=== PATIENT | male | born 1975 ===

== ENCOUNTER 2021-06-11 07:01 | Inpatient (IN) | payer OTHER ==
[2021-06-11] MEDS ORDERED: SODIUM CHLORIDE 0.9% 1,000 ML IV ONE ×2 (07:04→09:03)
[2021-06-11 07:44] LABS: Basophils # (A) 0.1 k/uL (0-0.2); Basophils % (A) 1 %; Eosinophils # (A) 0.1 k/uL (0-0.7); Eosinophils % (A) 1 %; HCT 45.6 % (39.0-53.0); HGB 15.2 gm/dL (13.0-17.5); Lymphocytes # (A) 1.2 k/uL (1.0-4.8); Lymphocytes % (A) 23 %; MCH 31.6 pg (25.0-35.0); MCHC 33.3 g/dL (31.0-37.0); MCV 95.1 fL (80.0-100.0); Mean Platelet Volume 7.1; Monocytes # (A) 0.2 k/uL (0-1.0); Monocytes % (A) 4 %; Neutrophils # (A) 3.5 k/uL (1.3-7.7); Neutrophils % (A) 68 %; Platelet Count 247 k/uL (150-450); RDW 14.2 % (11.5-15.5); WBC 5.1 k/uL (3.8-10.6)
[2021-06-11 07:50] LABS: ALT 39 U/L (4-49); AST 76 U/L (17-59); African American GFR (CKD) >90 (>60 ml/min/1.73 sqM); Albumin 4.8 g/dL (3.5-5.0); Alkaline Phosphatase 86 U/L (38-126); Anion Gap 16 mmol/L; Blood Urea Nitrogen 5 mg/dL (9-20); Carbon Dioxide 19 mmol/L (22-30); Chloride 110 mmol/L (98-107); Glucose 131 mg/dL (74-99); Non-African American GFR(CKD) >90 (>60 ml/min/1.73 sqM); Potassium 4.2 mmol/L (3.5-5.1); Sodium 145 mmol/L (137-145); Total Bilirubin 0.4 mg/dL (0.2-1.3); Total Protein 8.5 g/dL (6.3-8.2)
--- NOTE | 2021-06-11 07:57 | ED ---
General Adult HPI - General Chief complaint: Altered Mental Status Stated complaint: Seizure Time Seen by Provider: 06/11/21 07:01 Source: patient, EMS, RN notes reviewed, old records reviewed Mode of arrival: EMS Limitations: language barrier - History of Present Illness Initial comments: This is a 46-year-old male who presents to the emergency department with altered mental status. Family found him acting bizarre and thought he might be having a seizure. EMS indicated continued bizarrely when she refused a seizure so they gave him 5 of Versed he settled down a little was able to answer some questions but he still was doing a little thrashing when he came into the emergency department. Patient told me he was drinking but did no drugs. Patient denies any trauma. Patient denies any pain. Patient denies any medical problems. Patient states he is trying to stop drinking but he told me he did do a lot of drinking recently. Patient denies any recent fever chills or cough per patient denies abdominal pain. - Related Data Allergies Allergy/AdvReac Type Severity Reaction Status Date / Time Penicillins Allergy Anaphylaxis Verified 06/11/21 07:55 escitalopram [From Lexapro] AdvReac Arm, Leg Verified 06/11/21 07:55 and Head jerking Review of Systems ROS Statement: Those systems with pertinent positive or pertinent negative responses have been documented in the HPI. ROS Other: All systems not noted in ROS Statement are negative. Past Medical History Past Medical History: Unable to Obtain History of Any Multi-Drug Resistant Organisms: Unobtainable Past Surgical History: Unable to Obtain Smoking Status: Never smoker Past Alcohol Use History: Abuse, Heavy Past Drug Use History: Unable to Obtain General Exam - General Exam Comments Initial Comments: GENERAL: Patient is well-developed and well-nourished. Patient is nontoxic and well- hydrated and is in mild distress. Patient is thrashing but able to correct full of what he really concentrates and is able to answer questions. ENT: Neck is soft and supple. No significant lymphadenopathy is noted. Oropharynx is clear. Moist mucous membranes. Neck has full range of motion without eliciting any pain. EYES: The sclera were anicteric and conjunctiva were pink and moist. Extraocular movements were intact and pupils were equal round and reactive to light. Eyelids were unremarkable. PULMONARY: Unlabored respirations. Good breath sounds bilaterally. No audible rales rhonchi or wheezing was noted. CARDIOVASCULAR: There is a regular rate and rhythm without any murmurs gallops or rubs. ABDOMEN: Soft and nontender with normal bowel sounds. SKIN: Skin is clear with no lesions or rashes and otherwise unremarkable. NEUROLOGIC: Patient is alert and oriented x3. Cranial nerves II through XII are grossly intact. Motor and sensory are also intact. Normal speech, volume and content. Symmetrical smile. MUSCULOSKELETAL: Normal extremities with adequate strength and full range of motion. LYMPHATICS: No significant lymphadenopathy is noted PSYCHIATRIC: Normal psychiatric evaluation. Limitations: language barrier Course Vital Signs 06/11/21 06/11/21 07:18 07:26 Temperature 97.9 F Pulse Rate 124 H 125 H Respiratory 20 22 Rate Blood Pressure 180/116 175/109 O2 Sat by Pulse 91 L 96 Oximetry Medical Decision Making - Medical Decision Making EKG shows sinus tachycardia at 101 bpm TN interval is 164 QRS is 84 QT interval 316 QTC C is 448. Patient's EKG shows no ST segment elevation or depression. I spoke with because he agreed to admit the patient admitted the patient wrote admitting orders. - Lab Data Result diagrams: 06/11/21 07:11 06/11/21 07:11 Lab Results 06/11/21 06/11/21 06/11/21 Range/Units 07:11 07:11 07:11 WBC 5.1 (3.8-10.6) k/uL RBC 4.80 (4.30-5.90) m/uL Hgb 15.2 (13.0-17.5) gm/dL Hct 45.6 (39.0-53.0) % MCV 95.1 (80.0-100.0) fL MCH 31.6 (25.0-35.0) pg MCHC 33.3 (31.0-37.0) g/dL RDW 14.2 (11.5-15.5) % Plt Count 247 (150-450) k/uL MPV 7.1 Neutrophils % 68 % Lymphocytes % 23 % Monocytes % 4 % Eosinophils % 1 % Basophils % 1 % Neutrophils # 3.5 (1.3-7.7) k/uL Lymphocytes # 1.2 (1.0-4.8) k/uL Monocytes # 0.2 (0-1.0) k/uL Eosinophils # 0.1 (0-0.7) k/uL Basophils # 0.1 (0-0.2) k/uL Sodium 145 (137-145) mmol/L Potassium 4.2 (3.5-5.1) mmol/L Chloride 110 H (98-107) mmol/L Carbon Dioxide 19 L (22-30) mmol/L Anion Gap 16 mmol/L BUN 5 L (9-20) mg/dL Creatinine 0.79 (0.66-1.25) mg/dL Est GFR (CKD-EPI)AfAm >90 (>60 ml/min/1.73 sqM) Est GFR (CKD-EPI)NonAf >90 (>60 ml/min/1.73 sqM) Glucose 131 H (74-99) mg/dL Calcium 9.0 (8.4-10.2) mg/dL Total Bilirubin 0.4 (0.2-1.3) mg/dL AST 76 H (17-59) U/L ALT 39 (4-49) U/L Alkaline Phosphatase 86 (38-126) U/L Ammonia <9 (<30) umol/L Troponin I (0.000-0.034) ng/mL Total Protein 8.5 H (6.3-8.2) g/dL Albumin 4.8 (3.5-5.0) g/dL Serum Alcohol 491 H* mg/dL 06/11/21 Range/Units 07:11 WBC (3.8-10.6) k/uL RBC (4.30-5.90) m/uL Hgb (13.0-17.5) gm/dL Hct (39.0-53.0) % MCV (80.0-100.0) fL MCH (25.0-35.0) pg MCHC (31.0-37.0) g/dL RDW (11.5-15.5) % Plt Count (150-450) k/uL MPV Neutrophils % % Lymphocytes % % Monocytes % % Eosinophils % % Basophils % % Neutrophils # (1.3-7.7) k/uL Lymphocytes # (1.0-4.8) k/uL Monocytes # (0-1.0) k/uL Eosinophils # (0-0.7) k/uL Basophils # (0-0.2) k/uL Sodium (137-145) mmol/L Potassium (3.5-5.1) mmol/L Chloride (98-107) mmol/L Carbon Dioxide (22-30) mmol/L Anion Gap mmol/L BUN (9-20) mg/dL Creatinine (0.66-1.25) mg/dL Est GFR (CKD-EPI)AfAm (>60 ml/min/1.73 sqM) Est GFR (CKD-EPI)NonAf (>60 ml/min/1.73 sqM) Glucose (74-99) mg/dL Calcium (8.4-10.2) mg/dL Total Bilirubin (0.2-1.3) mg/dL AST (17-59) U/L ALT (4-49) U/L Alkaline Phosphatase (38-126) U/L Ammonia (<30) umol/L Troponin I <0.012 (0.000-0.034) ng/mL Total Protein (6.3-8.2) g/dL Albumin (3.5-5.0) g/dL Serum Alcohol mg/dL Disposition Clinical Impression: Alcohol intoxication Disposition: ADMITTED IP TO THIS HOSP Referrals: None,Stated [Primary Care Provider] - 1-2 days Time of Disposition: 09:02
[2021-06-11] MEDS ORDERED: LORazepam 2 MG/ML INJ IV STA (07:59)
[2021-06-11 08:04] LABS: Alcohol 491 mg/dL
--- NOTE | 2021-06-11 08:12 | CT ---
EXAMINATION TYPE: CT brain wo con DATE OF EXAM: 06/11/2021 COMPARISON: 11/10/2020 HISTORY: Altered mental staus CT DLP: 1247.4 mGycm. Automated Exposure Control for Dose Reduction was Utilized. TECHNIQUE: CT scan of the head is performed without contrast. FINDINGS: There is no acute intracranial hemorrhage, mass effect, or midline shift identified. The ventricles and sulci are within normal limits in size. Mild changes of ethmoidal chronic sinusitis an d maxillary chronic sinusitis. There is soft tissue thickening underneath the right frontal subcutane ous tissues which could be related to scar. Small subcutaneous hematoma not excluded. IMPRESSION: 1. No acute intracranial hemorrhage, mass effect, or midline shift is seen. Correlate with MRI as cli nically warranted.
[2021-06-11] MEDS ORDERED: MULTIVITAMINS, THERA 1 EACH TAB PO ONE (08:30)
[2021-06-11] MEDS ORDERED: SODIUM CHLORIDE 0.9% 1,000 ML with THIAMINE 100 MG, FOLIC ACID 1 MG IV ONE ×3 (08:45)
[2021-06-11] MEDS ORDERED: THIAMINE 100 MG/ML 2 ML VIAL IM STA (09:02)
[2021-06-11] MEDS ORDERED: LORazepam 2 MG/ML INJ IV PRN (09:02)
--- NOTE | 2021-06-11 09:02 | XR ---
EXAMINATION TYPE: XR chest 2V DATE OF EXAM: 06/11/2021 COMPARISON: 11/10/2020 INDICATION: Difficulty breathing seizure TECHNIQUE: Frontal and lateral views of the chest are obtained. FINDINGS: The heart size is normal. The pulmonary vasculature is normal. The lungs are clear. IMPRESSION: 1. No acute pulmonary process.
[2021-06-11 09:14] LABS: Partial Thromboplastin Time 24.1 sec (22.0-30.0); Prothrombin Time 10.4 sec (9.0-12.0)
[2021-06-11] MEDS: amLODIPine 5 MG TAB PO SCH (09:38)
[2021-06-11] MEDS: cloNIDine HCL 0.1 MG TAB PO SCH ×2 (09:38→20:40)
[2021-06-11] MEDS: THIAMINE 100 MG TAB PO SCH (09:38)
[2021-06-11] MEDS: HALOPERIDOL LACTATE 5 MG/ML 1 ML VIAL IM PRN ×2 (09:57→23:12)
[2021-06-11 10:49] LABS: Appearance,Urine Clear (Clear); Bacteria,Urine Rare /hpf; Bilirubin,Urine Negative (Negative); Blood,Urine Small (Negative); Color,Urine Light Yellow; Glucose,Urine (UA) Negative (Negative); Hyaline Casts,Urine 1 /lpf (0-2); Ketones,Urine Negative (Negative); Leukocyte Esterase,Urine Negative (Negative); Mucus,Urine Rare /hpf; Nitrite,Urine Negative (Negative); Protein,Urine Trace (Negative); RBC,Urine <1 /hpf (0-5); Specific Gravity,Urine 1.006 (1.001-1.035); Urobilinogen,Urine <2.0 mg/dL (<2.0); WBC,Urine <1 /hpf (0-5)
[2021-06-11 11:13] LABS: Amphetamine Screen,Urine Not Detected (NotDetected); Barbiturate Screen,Urine Not Detected (NotDetected); Benzodiazepines Screen,Urine Detected (NotDetected); Cocaine Screen,Urine Not Detected (NotDetected); Methadone Screen, Urine Not Detected (NotDetected); Opiate Screen,Urine Not Detected (NotDetected); Oxycodone Screen, Urine Not Detected (NotDetected); Phencyclidine Screen,Urine Not Detected (NotDetected); Tricyclic Antidepressant,Urine Not Detected (NotDetected); Urn Cannabinoid Scrn Not Detected (NotDetected)
--- NOTE | 2021-06-11 13:05 | P.HPIM ---
History of Present Illness 46-year-old male came in with all call intoxication.. Patient the blood alcohol levels are above 400. Patient appears to like Ativan in spite of his will have blood alcohol level so high patient states he is having withdrawals and will need Ativan. Patient is tachycardic but this is secondary to rebound from not taking clonidine today morning. There are no other objective evidence of active withdrawals at this time although patient admits to drinking everyday patient is expected to have withdrawals later today or tomorrow. Patient is willing to quit alcohol. All the imaging is within normal limits including chest x-ray and brain CT. REVIEW OF SYSTEMS: CONSTITUTIONAL: No fever, no malaise, no fatigue. HEENT: No recent visual problems or hearing problems. Denied any sore throat. CARDIOVASCULAR: No chest pain, orthopnea, PND, no palpitations, no syncope. PULMONARY: No shortness of breath, no cough, no hemoptysis. GASTROINTESTINAL: No diarrhea, no nausea, no vomiting, no abdominal pain. NEUROLOGICAL: No headaches, no weakness, no numbness. HEMATOLOGICAL: Denies any bleeding or petechiae. GENITOURINARY: Denies any burning micturition, frequency, or urgency. MUSCULOSKELETAL/RHEUMATOLOGICAL: Denies any joint pain, swelling, or any muscle pain. ENDOCRINE: Denies any polyuria or polydipsia. The rest of the 14-point review of systems is negative. PHYSICAL EXAMINATION: GENERAL: The patient is alert and oriented x3, not in any acute distress. Well developed, well nourished. HEENT: Pupils are round and equally reacting to light. EOMI. No scleral icterus. No conjunctival pallor. Normocephalic, atraumatic. No pharyngeal erythema. No thyromegaly. CARDIOVASCULAR: S1 and S2 present. No murmurs, rubs, or gallops. Sinus tach cardia PULMONARY: Chest is clear to auscultation, no wheezing or crackles. ABDOMEN: Soft, nontender, nondistended, normoactive bowel sounds. No palpable organomegaly. MUSCULOSKELETAL: No joint swelling or deformity. EXTREMITIES: No cyanosis, clubbing, or pedal edema. NEUROLOGICAL: Gross neurological examination did not reveal any focal deficits. SKIN: No rashes. Assessment and plan -Alcohol abuse: Counseling was provided. Patient was started on IV fluids thi amine multivitamin supplementation -Alcohol withdrawal: Patient will be monitored, continue on Ativan CIWA protocol. Looking at the labs patient doesn't appear to be as alcoholic as he claims as his magnesium and MCV are within normal limits. If patient doesn't have any significant the withdrawals by objective assessment patient can be discharged tomorrow. -Nicotine use: Counseling was provided DVT prophylaxis: Lovenox Past Medical History Past Medical History: Unable to Obtain History of Any Multi-Drug Resistant Organisms: Unobtainable Past Surgical History: Unable to Obtain Smoking Status: Never smoker Past Alcohol Use History: Abuse, Heavy Past Drug Use History: Unable to Obtain Medications and Allergies Home Medications Medication Instructions Recorded Confirmed Type LORazepam [Ativan] 0.5 - 1 mg PO DAILY PRN 06/11/21 06/11/21 History Sertraline [Zoloft] 50 mg PO HS 06/11/21 06/11/21 History amLODIPine [Norvasc] 5 mg PO DAILY 06/11/21 06/11/21 History cloNIDine HCL [Catapres] 0.1 mg PO BID 06/11/21 06/11/21 History Allergies Allergy/AdvReac Type Severity Reaction Status Date / Time Penicillins Allergy Anaphylaxis Verified 06/11/21 07:55 escitalopram [From Lexapro] AdvReac Arm, Leg Verified 06/11/21 07:55 and Head jerking Physical Exam Vitals: Vital Signs Temp Pulse Resp BP Pulse Ox 06/11/21 12:36 98 18 140/95 97 06/11/21 11:09 112 H 20 138/100 96 06/11/21 09:14 118 H 22 170/105 97 06/11/21 07:26 125 H 22 175/109 96 06/11/21 07:18 97.9 F 124 H 20 180/116 91 L Intake and Output 06/10/21 06/11/21 06/11/21 22:59 06:59 14:59 Other: Weight 124.738 kg Results CBC & Chem 7: 06/11/21 07:11 06/11/21 07:11 Labs: Abnormal Lab Results - Last 24 Hours (Table) 06/11/21 06/11/21 Range/Units 07:11 10:08 Chloride 110 H (98-107) mmol/L Carbon Dioxide 19 L (22-30) mmol/L BUN 5 L (9-20) mg/dL Glucose 131 H (74-99) mg/dL AST 76 H (17-59) U/L Total Protein 8.5 H (6.3-8.2) g/dL Urine Protein Trace H (Negative) Urine Blood Small H (Negative) Urine Bacteria Rare H (None) /hpf Urine Mucus Rare H (None) /hpf U Benzodiazepines Scrn Detected H (NotDetected) Serum Alcohol 491 H* mg/dL
[2021-06-11] MEDS: LORazepam 2 MG/ML INJ IV PRN ×7 (13:13→23:29)
[2021-06-11] MEDS: SERTRALINE 50 MG TAB PO SCH (20:40)
[2021-06-12] MEDS: LORazepam 2 MG/ML INJ IV PRN ×9 (00:29→19:05)
[2021-06-12] MEDS: THIAMINE 100 MG TAB PO SCH ×2 (08:10→16:45)
[2021-06-12] MEDS: cloNIDine HCL 0.1 MG TAB PO SCH ×2 (08:10→21:22)
[2021-06-12] MEDS: amLODIPine 5 MG TAB PO SCH (08:10)
[2021-06-12] MEDS: SERTRALINE 50 MG TAB PO SCH (21:22)
[2021-06-13] MEDS: LORazepam 2 MG/ML INJ IV PRN ×7 (00:08→20:22)
[2021-06-13 07:10] LABS: Basophils % (A) 1 %; Eosinophils % (A) 1 %; HCT 39.6 % (39.0-53.0); HGB 13.2 gm/dL (13.0-17.5); Lymphocytes # (A) 0.6 k/uL (1.0-4.8); Lymphocytes % (A) 13 %; MCH 31.4 pg (25.0-35.0); MCHC 33.3 g/dL (31.0-37.0); MCV 94.2 fL (80.0-100.0); Mean Platelet Volume 7.3; Monocytes # (A) 0.3 k/uL (0-1.0); Monocytes % (A) 6 %; Neutrophils # (A) 3.7 k/uL (1.3-7.7); Neutrophils % (A) 79 %; Platelet Count 169 k/uL (150-450); RBC 4.21 m/uL (4.30-5.90); RDW 13.9 % (11.5-15.5); WBC 4.7 k/uL (3.8-10.6)
[2021-06-13] MEDS: amLODIPine 5 MG TAB PO SCH (07:55)
[2021-06-13] MEDS: cloNIDine HCL 0.1 MG TAB PO SCH ×2 (07:55→20:06)
[2021-06-13] MEDS: THIAMINE 100 MG TAB PO SCH ×2 (07:55→16:17)
[2021-06-13 10:46] LABS: African American GFR (CKD) 130.2 (60.0-200.0); Anion Gap 14.8 mmol/L (4.00-12.00); BUN/Creat Ratio 16.86 Ratio (12.00-20.00); Blood Urea Nitrogen 11.8 mg/dL (9.0-27.0); Carbon Dioxide 21.2 mmol/L (21.6-31.8); Non-African American GFR(CKD) 112.4 (60.0-200.0); Potassium 3.8 mmol/L (3.5-5.5)
[2021-06-13] MEDS: ALPRAZolam 0.25 MG TAB PO PRN (16:17)
[2021-06-13] MEDS: SERTRALINE 50 MG TAB PO SCH (20:06)
--- NOTE | 2021-06-13 22:43 | P.PN ---
Subjective Progress Note Date: 06/12/21 46-year-old male came in with alcohol intoxication.. Patient the blood alcohol levels are above 400. Patient was tachycardic but this is secondary to rebound from not taking clonidine. Patient is willing to quit alcohol. All the imaging is within normal limits including chest x-ray and brain CT. 06/12/2021 Patient is still requiring IV Ativan. Shaky when awake. No complaints of chest pain or shortness of breath. No complaints of nausea. No episodes of vomiting. Started on oral diet. Patient has been afebrile. Blood pressure is slightly elevated. Patient is being continued on alcohol withdrawal symptoms. Patient has been afebrile. No cough or sputum production. Current medications reviewed. Objective - Vital Signs Vital signs: Vital Signs Temp 98.3 F 06/12/21 12:50 Pulse 91 06/12/21 12:50 Resp 15 06/12/21 12:50 BP 154/98 06/12/21 12:50 Pulse Ox 96 06/12/21 12:50 Intake & Output 06/12/21 06/12/21 06/13/21 06:59 18:59 05:59 Intake Total 1840 480 Balance 1840 480 Intake: Oral 1840 480 Other: # Voids 2 4 - Exam PHYSICAL EXAMINATION: GENERAL: The patient is alert and oriented x3, not in any acute distress. Well developed, well nourished. drowzy HEENT: Pupils are round and equally reacting to light. EOMI. No scleral icterus. No conjunctival pallor. Normocephalic, atraumatic. No pharyngeal erythema. No thyromegaly. CARDIOVASCULAR: S1 and S2 present. No murmurs, rubs, or gallops. Sinus tach c ardia PULMONARY: Chest is clear to auscultation, no wheezing or crackles. ABDOMEN: Soft, nontender, nondistended, normoactive bowel sounds. No palpable organomegaly. MUSCULOSKELETAL: No joint swelling or deformity. EXTREMITIES: No cyanosis, clubbing, or pedal edema. NEUROLOGICAL: Gross neurological examination did not reveal any focal deficits. SKIN: No rashes. - Labs CBC & Chem 7: 06/13/21 06:37 06/13/21 06:37 Assessment and Plan Assessment: Assessment and plan -Acute alcohol intoxication. -Alcohol abuse: Counseling was provided. Patient was started on IV fluids thiamine multivitamin supplementation -Alcohol withdrawal: Patient will be monitored, continue on Ativan CIWA yuval col. -Nicotine use: Counseling was provided DVT prophylaxis: Lovenox
--- NOTE | 2021-06-13 22:44 | P.PN ---
Subjective Progress Note Date: 06/13/21 Principal diagnosis: Acute alcohol intoxication 46-year-old male came in with alcohol intoxication.. Patient the blood alcohol levels are above 400. Patient was tachycardic but this is secondary to rebound from not taking clonidine. Patient is willing to quit alcohol. All the imaging is within normal limits including chest x-ray and brain CT. 06/12/2021 Patient is still requiring IV Ativan. Shaky when awake. No complaints of chest pain or shortness of breath. No complaints of nausea. No episodes of vomiting. Started on oral diet. Patient has been afebrile. Blood pressure is slightly elevated. Patient is being continued on alcohol withdrawal symptoms. Patient has been afebrile. No cough or sputum production. 06/13/2021 Patient is lying in the bed awake alert Isabella x3 today. Did not require alcohol withdrawal protocol. Otherwise patient is very anxious. He was also notified by his friend that his daughter is in a car accident. Patient is otherwise denied any chest pain or shortness of breath. No nausea vomiting abdominal pain or diarrhea. Anticipate discharge in the next 24 hours with more clinical improvement. Laboratory showed WBC 4.7 hemoglobin 13.1 platelets 169 anion gap 14.8 and bicarb 21.2 Urinalysis is negative. UDS is positive for benzodiazepines. Current medications reviewed. Objective - Vital Signs Vital signs: Vital Signs Temp 98.2 F 06/13/21 13:00 Pulse 96 06/13/21 13:00 Resp 18 06/13/21 13:00 BP 142/84 06/13/21 13:00 Pulse Ox 97 06/13/21 13:00 Intake & Output 06/12/21 06/13/21 06/13/21 19:59 06:59 18:59 Intake Total 360 Output Total 800 Balance -440 Intake: Oral 360 Output: Urine 800 Other: # Voids 1 - Exam PHYSICAL EXAMINATION: GENERAL: The patient is alert and oriented x3, not in any acute distress. Well developed, well nourished. drowzy HEENT: Pupils are round and equally reacting to light. EOMI. No scleral icterus. No conjunctival pallor. Normocephalic, atraumatic. No pharyngeal erythema. No thyromegaly. CARDIOVASCULAR: S1 and S2 present. No murmurs, rubs, or gallops. Sinus tach cardia PULMONARY: Chest is clear to auscultation, no wheezing or crackles. ABDOMEN: Soft, nontender, nondistended, normoactive bowel sounds. No palpable organomegaly. MUSCULOSKELETAL: No joint swelling or deformity. EXTREMITIES: No cyanosis, clubbing, or pedal edema. NEUROLOGICAL: Gross neurological examination did not reveal any focal deficits. SKIN: No rashes. - Labs CBC & Chem 7: 06/13/21 06:37 06/13/21 06:37 Labs: Abnormal Lab Results - Last 24 Hours (Table) 06/13/21 06/13/21 Range/Units 06:37 06:37 RBC 4.21 L (4.30-5.90) m/uL Lymphocytes # 0.6 L (1.0-4.8) k/uL Carbon Dioxide 21.2 L (21.6-31.8) mmol/L Anion Gap 14.80 H (4.00-12.00) mmol/L Assessment and Plan Assessment: Assessment and plan -Acute alcohol intoxication. -Alcohol abuse: Counseling was provided. Patient was started on IV fluids thiamine multivitamin supplementation -Alcohol withdrawal: Patient will be monitored, continue on Ativan CIWA protocol. -Nicotine use: Counseling was provided DVT prophylaxis: Lovenox
[2021-06-14] MEDS: ALPRAZolam 0.25 MG TAB PO PRN ×3 (00:28→15:46)
[2021-06-14] MEDS: LORazepam 2 MG/ML INJ IV PRN (04:08)
[2021-06-14 05:21] VITALS: TEMP 98.2
[2021-06-14] MEDS: THIAMINE 100 MG TAB PO SCH (08:19)
[2021-06-14] MEDS: amLODIPine 5 MG TAB PO SCH (08:19)
[2021-06-14] MEDS: cloNIDine HCL 0.1 MG TAB PO SCH (08:19)
[2021-06-14 13:29] VITALS: BP 131/78; PULSE 72; RESP 17
== END 2021-06-14 16:19 | disposition home or self-care (01) | DRG 897 ==
LOC: EDBD → EC 07:01 → 5NMEDONC 09:03
PROVIDERS: ADMIT Internal Medicine; ATTEND Internal Medicine
PROC: HZ2ZZZZ Detoxification Services for Substance Abuse Treatment (ICD-10-PCS; principal; 2021-06-11)
DX: F10.239 Alcohol dependence with withdrawal, unspecified (principal); F10.229 Alcohol dependence with intoxication, unspecified; R00.0 Tachycardia, unspecified; Z20.822 Contact with and (suspected) exposure to COVID-19; Y90.8 Blood alcohol level of 240 mg/100 ml or more; R56.9 Unspecified convulsions; Z79.899 Other long term (current) drug therapy; Z88.0 Allergy status to penicillin; Z88.8 Allergy status to other drugs, medicaments and biological substances; Z71.6 Tobacco abuse counseling; Z71.41 Alcohol abuse counseling and surveillance of alcoholic
CPT/HCPCS: 36415; 70450; 71046; 80048; 80053; 80306; 80320; 81001; 82140; 83735; 84484; 85025; 85610; 85730; 87635; 96361; 96374; 99285